=== PATIENT | female | born 1960 | race Caucasian/White ===

== ENCOUNTER 2018-04-24 15:59 | Emergency (ER) | payer MEDICAID ==
[~2018-04-24] VITALS: Ht 160 cm; Wt 64.0 kg
--- NOTE | 2018-04-24 16:45 | NUR ---
Arrived to unit via EMS. Per report, she was at [facility] this afternoon to have her meds adjusted. She has suffered from depression since her 20's. She currently takes antidepressives. She voiced that last week she took 3 norco and 2 shots of rum in her coffee. When asked, she relates this really was not in attempt to harm herself, but rather to numb her emotional pain. She states what triggered this issue was a relationship. She was talking to someone on phone and was led to believe there was a romantic relationship, but there was not. She voiced increase in thoughts of suicide, and was placed on 5150 by psychiatric arnp at clinic. States has history of one suicide attempt in past. She is very calm and cooperative during interview.
[2018-04-24] MEDS ORDERED: VENL-190 PO (17:03)
[2018-04-24] MEDS ORDERED: VENL150C58 PO (17:03)
[2018-04-24] MEDS ORDERED: POLY17PO10 PO (17:03)
[2018-04-24] MEDS ORDERED: CLON-528 PO (17:03)
[2018-04-24] MEDS ORDERED: BUPR300T53 PO (17:03)
--- NOTE | 2018-04-24 17:08 | NUR ---
Telepsych called. Pt placed in queue.
--- NOTE | 2018-04-24 18:41 | NUR ---
Report received, care assumed. Patient sitting up in bed, eating dinner.
[2018-04-24 19:03] LABS: BASOPHILS # (AUTO) 0.1 X10'3 (0-0.2); BASOPHILS % (AUTO) 1.2 % (0-1); EOSINOPHILS # (AUTO) 0.2 X10'3 (0-0.9); EOSINOPHILS % (AUTO) 3.6 % (0-6); HEMATOCRIT 39.7 % (35.0-45.0); HEMOGLOBIN 13.3 g/dl (12.0-16.0); LYMPHOCYTES # (AUTO) 1.8 X10'3 (1.1-4.8); LYMPHOCYTES % (AUTO) 37.2 % (21-51); MEAN CORPUSCULAR HEMOGLOBIN 30.5 PG (27.0-31.0); MEAN CORPUSCULAR HGB CONC 33.6 % (33.0-36.5); MEAN CORPUSCULAR VOLUME 90.7 FL (78-98); MEAN PLATELET VOLUME 8.1 FL (7.4-10.4); MONOCYTES # (AUTO) 0.4 X10'3 (0-0.9); MONOCYTES % (AUTO) 7.8 % (2-12); NEUTROPHILS # (AUTO) 2.5 X10'3 (1.8-7.7); NEUTROPHILS % (AUTO) 50.2 % (42-75); PLATELET COUNT 339 X10'3 (140-440); RED BLOOD COUNT 4.38 X10'6 (4.20-5.60); RED CELL DISTRIBUTION WIDTH 13.8 % (11.5-14.5); WHITE BLOOD COUNT 4.9 X10'3 (4.5-11.0)
[2018-04-24 19:27] LABS: ALANINE AMINOTRANSFERASE 43 U/L (12-78); ALKALINE PHOSPHATASE 94 IU/L (46-116); ANION GAP 9 (8-16); ASPARTATE AMINO TRANSFERASE 28 U/L (10-37); BILIRUBIN,TOTAL 0.4 MG/DL (0.1-1.0); BLOOD UREA NITROGEN 9 MG/DL (7-18); BUN/CREATININE RATIO 10.6 (6.6-38.0); CHLORIDE 100 MMOL/L (99-107); CREATININE 0.85 MG/DL (0.40-0.90); GLUCOSE 94 MG/DL (70-104); POTASSIUM 3.7 MMOL/L (3.5-5.1); SODIUM 139 MMOL/L (135-145); TOTAL CARBON DIOXIDE 30.1 MMOL/L (24-32); eGFR 69 ML/MIN
[2018-04-24 19:29] LABS: ACETAMINOPHEN < 2.0 UG/ML (10-30); ETHANOL < 0.010 GM/DL (0.0-0.010)
--- NOTE | 2018-04-24 19:35 | NUR ---
Up to the desk asking regarding POC and discharge. Explained to patient that [facility] was not avail tonight, and that they would need to eval in order to determine POC. Patient requested to call her brother to update him on this, and means provided to do so.
--- NOTE | 2018-04-24 19:50 | NUR ---
Obtained purse from lockers, patient retrieved house keys so that they can be left for her brother, and purse was returned to lockers.
[2018-04-24 19:57] LABS: URINE AMPHETAMINE SCREEN NEGATIVE (Neg); URINE BARBITUATE SCREEN NEGATIVE (Neg); URINE BENZODIAZEPINES SCREEN NEGATIVE (Neg); URINE CANNABINOID SCREEN NEGATIVE (Neg); URINE COCAINE SCREEN NEGATIVE (Neg); URINE METHADONE SCREEN NEGATIVE (Neg); URINE OPIATE SCREEN NEGATIVE (Neg); URINE PHENCYCLIDINE SCREEN NEGATIVE (Neg)
[2018-04-24] MEDS: buPROPion SR 150mg tablet PO SCH (20:08)
--- NOTE | 2018-04-24 20:09 | NUR ---
ERP Wiley, updated on POC/situation, and [facility] not avail for eval.
--- NOTE | 2018-04-24 20:35 | NUR ---
Alert, responsive, and appropriate. Appropriate interactions with staff and others. Denies SI. Cooperative, will continue to monitor.
[2018-04-24] MEDS ORDERED: venlafaxine XR 75mg capsule (Q24H) PO SCH (21:00)
--- NOTE | 2018-04-24 21:40 | NUR ---
Resting in, eyes closed, resp are even and unlabored, appearing to sleep without new issues or concerns. Will continue to monitor.
--- NOTE | 2018-04-24 22:17 | NUR ---
Resting in bed, eyes closed, resp even and unlabored, appearing to sleep without distress. Will continue to monitor.
--- NOTE | 2018-04-24 23:44 | NUR ---
Resting in bed, eyes closed, appearing to sleep comfortably with even and unlabored respirations. No new concerns noted. Will continue to monitor.
--- NOTE | 2018-04-25 00:48 | NUR ---
Whitley mendoza in [facility] - 04/25/18 at 0049 by AMIRA Resting in bed with eyes closed, appearing to sleep. Occasionally "talking in his sleep". Will continue to monitor.
--- NOTE | 2018-04-25 00:48 | NUR ---
Resting in bed with eyes closed, appearing to sleep. Will continue to monitor.
--- NOTE | 2018-04-25 01:33 | NUR ---
Resting in bed with eyes closed, appearing to sleep. Will continue to monitor.
--- NOTE | 2018-04-25 02:17 | NUR ---
Resting in bed, appearing to sleep, no new concerns, will monitor.
--- NOTE | 2018-04-25 03:22 | NUR ---
Resting in bed, appearing to sleep, no new concerns, will monitor.
--- NOTE | 2018-04-25 04:32 | NUR ---
In bed, appearing to sleep.
--- NOTE | 2018-04-25 05:16 | NUR ---
Has slept through the night, continues to appear to sleep without issues or concerns. Will monitor.
--- NOTE | 2018-04-25 07:00 | NUR ---
Pt lying in bed, appears to be sleeping.
[2018-04-25] MEDS ORDERED: polyethylene glycol 3350 17gm powd pack PO SCH (08:00)
[2018-04-25] MEDS ORDERED: venlafaxine XR 75mg capsule (Q24H) PO SCH (08:00)
[2018-04-25] MEDS: buPROPion SR 150mg tablet PO SCH (08:15)
--- NOTE | 2018-04-25 09:00 | NUR ---
Pt awake, alert, ate breakfast, denies SI, rates her depression at a 4/10, concerned that she does not have Klonpin ordered for her here.
--- NOTE | 2018-04-25 09:40 | NUR ---
Pt's brother Juan here for a visit
--- NOTE | 2018-04-25 09:55 | NUR ---
faxed pt packet to [facility] @ [phone]
--- NOTE | 2018-04-25 10:02 | NUR ---
Patient's brother visiting.
--- NOTE | 2018-04-25 10:30 | NUR ---
Pt's brother left to run errands, gave this nurse his cell number in case she is discharged. Juan Sotelo: [phone].
--- NOTE | 2018-04-25 10:42 | NUR ---
Pt up to the bathroom.
--- NOTE | 2018-04-25 12:30 | NUR ---
Pt awake, sitting up in bed.
--- NOTE | 2018-04-25 13:14 | NUR ---
Pt is being discharged, called her brother Juan per pt request to come and pick her up.
[2018-04-25 13:16] VITALS: BP 142/80
== END 2018-04-25 13:35 | disposition home or self-care (01) ==
LOC: ER 16:00
DX: F41.9 Anxiety disorder, unspecified (principal); F32.9 Major depressive disorder, single episode, unspecified
CPT/HCPCS: 36415; 80053; 80305; 80320; 80329; 85025; 99285

== ENCOUNTER 2018-08-30 06:29 | Emergency (ER) | payer MEDICAID ==
[~2018-08-30] VITALS: Ht 160 cm; Wt 65.9 kg
[~2018-08-30 06:29] MED LIST: BUPR300T53 PO; CLON-528 PO; POLY17PO10 PO; VENL-190 PO; VENL150C58 PO
[2018-08-30] MEDS ORDERED: normal saline 1000ML IV soln IVB ONE (07:00)
[2018-08-30] MEDS ORDERED: ondansetron/PF 4mg/2ml inj IV ONE (07:00)
[2018-08-30 07:47] LABS: BASOPHILS % (AUTO) 0.6 % (0-1); EOSINOPHILS # (AUTO) 0.1 X10'3 (0-0.9); EOSINOPHILS % (AUTO) 1.1 % (0-6); LYMPHOCYTES % (AUTO) 14.9 % (21-51); MEAN CORPUSCULAR HEMOGLOBIN 30.6 PG (27.0-31.0); MEAN CORPUSCULAR HGB CONC 34.2 g/dL (33.0-36.5); MEAN CORPUSCULAR VOLUME 89.5 FL (78-98); MONOCYTES # (AUTO) 0.8 X10'3 (0-0.9); MONOCYTES % (AUTO) 10.9 % (2-12); NEUTROPHILS # (AUTO) 5.1 X10'3 (1.8-7.7); NEUTROPHILS % (AUTO) 72.5 % (42-75); PLATELET COUNT 341 X10'3 (140-440); RED BLOOD COUNT 4.25 X10'6 (4.20-5.60); RED CELL DISTRIBUTION WIDTH 13.6 % (11.5-14.5)
--- NOTE | 2018-08-30 09:04 | NUR ---
Multiple attempts to obtain IV access. Lukas montalvo.
[2018-08-30 09:08] LABS: ALANINE AMINOTRANSFERASE 26 U/L (12-78); ALBUMIN 3.5 G/DL (3.4-5.0); ALBUMIN/GLOBULIN RATIO 0.9 (1.1-1.5); ALKALINE PHOSPHATASE 87 IU/L (46-116); ANION GAP 8 (8-16); ASPARTATE AMINO TRANSFERASE 19 U/L (10-37); BLOOD UREA NITROGEN 13 MG/DL (7-18); CALCIUM 8.6 MG/DL (8.5-10.1); CHLORIDE 103 MMOL/L (99-107); CREATININE 0.93 MG/DL (0.40-0.90); GLUCOSE 101 MG/DL (70-104); LIPASE 84 U/L (73-393); POTASSIUM 3.8 MMOL/L (3.5-5.1); SODIUM 139 MMOL/L (135-145); TOTAL CARBON DIOXIDE 28.2 MMOL/L (24-32); TOTAL PROTEIN 7.2 G/DL (6.4-8.2); eGFR 62 ML/MIN
[2018-08-30] MEDS ORDERED: ONDA4TAB12 PO (09:14)
[2018-08-30] MEDS ORDERED: CIPR-230 PO (09:14)
[2018-08-30] MEDS ORDERED: METR500T PO (09:14)
[2018-08-30 09:33] VITALS: BP 142/77
[2018-08-30 09:41] LABS: CLARITY,URINE CLEAR (Clear); COLOR,URINE YELLOW (Yellow); GLUCOSE, URINE NEGATIVE (Neg); KETONES,URINE NEGATIVE (Neg); LEUKOCYTE ESTERASE ,URINE NEGATIVE (Neg); NITRITES, URINE NEGATIVE (Neg); OCCULT BLOOD,URINE TRACE-INTACT (Neg); PROTEIN,URINE NEGATIVE (Neg); UROBILINOGEN,URINE 0.2 E.U/dL (0.2-1.0)
[2018-08-30 09:42] LABS: URINE HCG NEGATIVE (NEG)
[2018-08-30 09:50] LABS: BACTERIA,URINE NONE SEEN /HPF (Neg); MUCUS STRANDS FEW /LPF (Neg); RBC,URINE 0-2 /HPF (0-2); SQUAMOUS EPITHELIAL CELL,UR FEW /LPF (FEW); UA COLLECTION TYPE CLN CATCH MIDSTREAM; WBC,URINE NONE SEEN /HPF (0-4)
== END 2018-08-30 09:36 | disposition home or self-care (01) ==
LOC: ER 06:30
DX: E86.0 Dehydration (principal); R10.9 Unspecified abdominal pain; Z79.899 Other long term (current) drug therapy
CPT/HCPCS: 36415; 80053; 81001; 81025; 83690; 85025; 85610; 96361; 96374; 99283; J2405; J7030

== ENCOUNTER 2021-10-06 21:47 | Emergency (ER) | payer MEDICAID ==
[~2021-10-06] VITALS: Ht 160 cm; Wt 56.0 kg
[~2021-10-06 21:47] MED LIST changes: +ONDA4TAB12 PO
[2021-10-07] MEDS ORDERED: pantoprazole 40 MG vial IV ONE (02:15)
[2021-10-07] MEDS ORDERED: normal saline 1000ML IV soln IVB ONE (02:15)
[2021-10-07] MEDS ORDERED: ondansetron/PF 4mg/2ml inj IV ONE (02:15)
[2021-10-07] MEDS ORDERED: pantoprazole 40MG/NS 100ML BAG 100 ML IV ONE (02:20)
[2021-10-07 03:24] VITALS: BP 138/77
== END 2021-10-07 03:29 | disposition home or self-care (01) ==
LOC: ER 21:48
DX: U07.1 COVID-19 (principal); F41.9 Anxiety disorder, unspecified; F32.9 Major depressive disorder, single episode, unspecified; Z79.899 Other long term (current) drug therapy
CPT/HCPCS: 96365; 96375; 99284; C9113; J2405; J7030

== ENCOUNTER 2022-09-04 09:15 | Emergency (ER) | payer MEDICAID ==
[~2022-09-04] VITALS: Ht 160 cm; Wt 58.0 kg
[2022-09-04 09:19] VITALS: BP 126/73
== END 2022-09-04 10:13 | disposition home or self-care (01) ==
LOC: ER 09:16
DX: Z00.8 Encounter for other general examination (principal)
CPT/HCPCS: 99281